=== PATIENT | male | born 1935 | race Caucasian/White ===

== ENCOUNTER 2018-05-29 15:47 | Emergency (ER) | payer OTHER ==
[~2018-05-29] VITALS: Ht 190.5 cm; Wt 113.0 kg
[~2018-05-29 15:47] MED LIST: AMLO-150 PO; ASPI325T17 PO; FINA5TAB4 PO; FISH OIL OMEGA1 EACH PO; FLAX100013 PO; GLIP10TA13 PO; LEVO150T5 PO; LISI-167 PO; METF500T17 PO; MULT1TAB13 PO; OXYC-307 PO; SIMV20TA3 PO; TAMS0.4C2 PO; VITA400C43 PO
[2018-05-29 15:52] VITALS: BP 201/97
--- NOTE | 2018-05-29 16:35 | NUR ---
Patient given discharge instructions and they have confirmed that they understand the instructions. Patient ambulatory with steady gait.
== END 2018-05-29 16:40 | disposition home or self-care (01) ==
LOC: ED 16:23
DX: R30.0 Dysuria (principal); I10 Essential (primary) hypertension; E11.9 Type 2 diabetes mellitus without complications
CPT/HCPCS: 99283